=== PATIENT | male | born 1965 | race Caucasian/White ===

== ENCOUNTER 2021-02-08 18:57 | Inpatient (IN) | payer OTHER ==
[~2021-02-08] VITALS: Ht 177.8 cm; Wt 161.4 kg
[2021-02-08 19:21] LABS: HEMOGLOBIN 15.8 gm/dl (14.0-17.5); RED BLOOD COUNT 5.28 M/UL (4.20-5.50); WHITE BLOOD COUNT 21.3 K/UL (4.5-11.0)
[2021-02-08 19:38] LABS: BUN/CREATININE RATIO 16 (0-10)
[2021-02-09 04:32] LABS: HEMOGLOBIN 14.3 gm/dl (14.0-17.5); RED BLOOD COUNT 4.9 M/UL (4.20-5.50); WHITE BLOOD COUNT 16.7 K/UL (4.5-11.0)
[2021-02-09] MEDS ORDERED: OMEPRAZOLE40 MG PO (11:08)
[2021-02-09] MEDS ORDERED: AMITRIPTYLINE H50 MG PO (11:09)
[2021-02-09] MEDS ORDERED: CARVEDILOL25 MG PO (11:09)
[2021-02-09] MEDS ORDERED: ELIQUIS5 MG PO (11:09)
[2021-02-09] MEDS ORDERED: IBU600 MG PO (11:10)
[2021-02-09] MEDS ORDERED: RISPERIDONE0.5 MG PO (11:10)
[2021-02-09] MEDS ORDERED: HYDROXYZINE HCL25 MG PO (11:10)
[2021-02-09] MEDS ORDERED: SERTRALINE HCL25 MG PO (11:11)
[2021-02-09] MEDS ORDERED: AMLODIPINE BESY10 MG PO (11:11)
[2021-02-09] MEDS ORDERED: CYCLOBENZAPRINE5 MG PO (11:11)
[2021-02-09] MEDS ORDERED: SINGULAIR10 MG PO (11:12)
[2021-02-09] MEDS ORDERED: LISINOPRIL20 MG PO (11:12)
[2021-02-09] MEDS ORDERED: BENADRYL25 MG PO (16:36)
[2021-02-10 03:06] LABS: HEMOGLOBIN 13.8 gm/dl (14.0-17.5); RED BLOOD COUNT 4.76 M/UL (4.20-5.50); WHITE BLOOD COUNT 20.2 K/UL (4.5-11.0)
--- NOTE | 2021-02-10 12:59 | NUR ---
PATIENT HEART RATE FROM 110 TO 150. CARDIOLOGY AWARE. AWAITING NEW ORDERS
[2021-02-11 04:11] LABS: HEMOGLOBIN 13.1 gm/dl (14.0-17.5); RED BLOOD COUNT 4.35 M/UL (4.20-5.50)
[2021-02-11 04:15] LABS: WHITE BLOOD COUNT 11.5 K/UL (4.5-11.0)
[2021-02-11 04:34] LABS: BUN/CREATININE RATIO 28 (0-10)
--- NOTE | 2021-02-12 00:31 | NUR ---
patients family called to check on how patient was doning, we spoke about patients baseline behavior and orientation, she states he is very functional in his ADL's and is able to interact in conversation with others. I informed her that he was very difficult to arouse and did not attempt to talk to me, he continuly pulls at he 02 off, and other cords and tubing, family states she was with him all day on 01/11/22 and felt that something was going on with him and voiced this to the day nurse, I expressed to her that I would pass her concerns onto the day shift.
[2021-02-12 04:27] LABS: HEMOGLOBIN 12.7 gm/dl (14.0-17.5); RED BLOOD COUNT 4.28 M/UL (4.20-5.50); WHITE BLOOD COUNT 10.2 K/UL (4.5-11.0)
[2021-02-12 04:45] LABS: BUN/CREATININE RATIO 34 (0-10)
--- NOTE | 2021-02-12 08:06 | NUR ---
INFORM MD SAENZ PATIENT HAS INCREASED CONFUSION ACCORDING TO FAMILY
--- NOTE | 2021-02-12 10:13 | NUR ---
PATIENT LEFT FLOOR WITH PORTABLE TELEMETRY FOR CT PER RADIOLOGY STAFF
--- NOTE | 2021-02-12 11:41 | NUR ---
AT 1031 AM PATIENT RETURNED TO FLOOR PER CT STAFF, PATIENT TOLERATED WELL.
--- NOTE | 2021-02-12 21:56 | NUR ---
PT SEEMS VERY CONFUSED THIS EVENINGDOES NOT FOLLOW SIMPLE COMMANDS, PULLING OUT IV'S, REFUSES TO KEEP HIS OXYGEN ON RESULTS IN SATS IN LOW 80'S, PULLING OFF ALL WIRES FAMILY WITNESSED BEHAVIOR EARLY IN SHIFT. FREQUENT REDIRECTION HAS NOT HELPED, MD GANT INFORMED AND NEW ORDERS ARE NOTED WILL CONTINUE TO MONITOR
[2021-02-13 03:17] LABS: HEMOGLOBIN 12.3 gm/dl (14.0-17.5); RED BLOOD COUNT 4.16 M/UL (4.20-5.50); WHITE BLOOD COUNT 7.8 K/UL (4.5-11.0)
[2021-02-13 03:41] LABS: BUN/CREATININE RATIO 28 (0-10)
[2021-02-14 03:28] LABS: HEMOGLOBIN 12.5 gm/dl (14.0-17.5); RED BLOOD COUNT 4.36 M/UL (4.20-5.50); WHITE BLOOD COUNT 6.6 K/UL (4.5-11.0)
[2021-02-14 03:46] LABS: BUN/CREATININE RATIO 34 (0-10)
[2021-02-14] MEDS ORDERED: AMIODARONE HCL200 MG PO (11:54)
[2021-02-14] MEDS ORDERED: MEROPENEM IV (11:56)
[2021-02-14] MEDS ORDERED: FUROSEMIDE IV (11:56)
[2021-02-14] MEDS ORDERED: VAZALORE81 MG PO (12:42)
== END 2021-02-14 21:00 | disposition short-term general hospital (02) | DRG 871 ==
LOC: ER1 18:57 → CDU 23:35 → PROG CARE 02-09 16:11
PROVIDERS: Family Medicine; Internal Medicine; ADMIT Internal Medicine
PROC: 5A09457 Assistance with Respiratory Ventilation, 24-96 Consecutive Hours, Continuous Positive Airway Pressure (ICD-10-PCS; principal; 2021-02-08)
PROC: 3E033XZ Introduction of Vasopressor into Peripheral Vein, Percutaneous Approach (ICD-10-PCS; 2021-02-08)
PROC: B24BZZZ Ultrasonography of Heart with Aorta (ICD-10-PCS; 2021-02-09)
PROC: 5A2204Z Restoration of Cardiac Rhythm, Single (ICD-10-PCS; 2021-02-10)
DX: A41.9 Sepsis, unspecified organism (principal); S72.142A Displaced intertrochanteric fracture of left femur, initial encounter for closed fracture; J96.01 Acute respiratory failure with hypoxia; Z20.822 Contact with and (suspected) exposure to COVID-19; R65.21 Severe sepsis with septic shock; J96.02 Acute respiratory failure with hypercapnia; G93.41 Metabolic encephalopathy; I50.33 Acute on chronic diastolic (congestive) heart failure; J18.9 Pneumonia, unspecified organism; I69.352 Hemiplegia and hemiparesis following cerebral infarction affecting left dominant side; Z68.43 Body mass index [BMI] 50.0-59.9, adult; E66.2 Morbid (severe) obesity with alveolar hypoventilation; N17.9 Acute kidney failure, unspecified; Z66 Do not resuscitate; F41.9 Anxiety disorder, unspecified; W01.0XXA Fall on same level from slipping, tripping and stumbling without subsequent striking against object, initial encounter; L89.322 Pressure ulcer of left buttock, stage 2; I11.0 Hypertensive heart disease with heart failure; I48.0 Paroxysmal atrial fibrillation; L89.312 Pressure ulcer of right buttock, stage 2; K80.20 Calculus of gallbladder without cholecystitis without obstruction; F32.A Depression, unspecified; E11.9 Type 2 diabetes mellitus without complications; Z79.01 Long term (current) use of anticoagulants; Z82.3 Family history of stroke; Z79.899 Other long term (current) drug therapy; Z82.49 Family history of ischemic heart disease and other diseases of the circulatory system
CPT/HCPCS: ECHO; 36415; 36600; 70450; 71045; 71250; 72192; 73501; 73552; 80048; 80053; 80202; 81001; 82550; 82553; 82803; 82962; 83036; 83605; 83735; 83880; 84100; 84439; 84443; 84484; 85025; 85027; 86140; 86850; 86900; 86901; 87040; 87086; 92526; 92610; 93005; 93306; 94640; 94660; 94760; 96374; 96375; 99285; J0360; J0456; J0696; J1160; J1200; J1205; J1630; J1742; J1940; J2185; J2250; J2270; J2405; J2543; J3370; J3486; J7030; J7070; U0002